=== PATIENT | male | born 1960 | race Caucasian/White ===

== ENCOUNTER 2020-07-15 01:25 | Emergency (ER) | payer OTHER ==
[~2020-07-15] VITALS: Ht 180.3 cm; Wt 84.8 kg
[~2020-07-15 01:25] MED LIST: BACPOLTO30 TP; CEPH500 PO; CITA20 PO; CLON.1 PO; CLON.5 PO; CLON1 PO; CYCL10 PO; DOXY100 PO; HYDACE10B PO; HYDACE5 PO; IBUP800 PO; LISI5 PO; LORA1 PO; MICROZIDE12.5 M1; MIRT15 PO; NAPR500 PO; OXYACE5T PO; PROM25 PO
[2020-07-15] MEDS ORDERED: LISINOPRIL-HCT1 EACH PO (01:40)
[2020-07-15] MEDS ORDERED: DIPH50 PO (01:41)
[2020-07-15] MEDS ORDERED: IBUP600 PO (01:41)
== END 2020-07-15 02:31 | disposition home or self-care (01) ==
LOC: ER 01:25
DX: K02.9 Dental caries, unspecified (principal); I10 Essential (primary) hypertension; F17.210 Nicotine dependence, cigarettes, uncomplicated; Z88.2 Allergy status to sulfonamides; Z88.0 Allergy status to penicillin; Z79.899 Other long term (current) drug therapy
CPT/HCPCS: 99282